=== PATIENT | female | born 1950 ===

== ENCOUNTER 2022-03-28 10:26 | Emergency (ER) | payer MEDICARE, OTHER ==
[2022-03-28 11:37] LABS: ANION GAP 12.3 mEq/L (7-13)
[2022-03-28 11:57] LABS: CORONAVIRUS COVID-19 NAA NEGATIVE (NEGATIVE)
[2022-03-28] MEDS ORDERED: Sodium Chloride 0.9% 1,000 ML IV ONE (12:00)
== END 2022-03-28 13:20 | disposition home or self-care (01) ==
LOC: DL.ED 10:26
DX: B34.9 Viral infection, unspecified (principal); E11.22 Type 2 diabetes mellitus with diabetic chronic kidney disease; N18.9 Chronic kidney disease, unspecified; Z88.1 Allergy status to other antibiotic agents; Z88.5 Allergy status to narcotic agent; Z88.2 Allergy status to sulfonamides; Z88.0 Allergy status to penicillin; Z88.8 Allergy status to other drugs, medicaments and biological substances; Z79.82 Long term (current) use of aspirin; Z79.84 Long term (current) use of oral hypoglycemic drugs; Z79.899 Other long term (current) drug therapy; Z20.822 Contact with and (suspected) exposure to COVID-19
CPT/HCPCS: 0240U; 36415; 80053; 81001; 83735; 84100; 85025; 87430; 96360; 99284; J7030